=== PATIENT | male | born 1965 | race Two or more races ===

== ENCOUNTER → 2023-01-22 | Outpatient (CLI) | payer MEDICAID ==
[2023-01-22 09:30] LABS: Basophils # (auto) 0 10 ^3/uL (0-0.2); Basophils % (auto) 0.7 % (0.0-2.0); Eosinophils # (auto) 0.1 10 ^3/uL (0-0.8); Eosinophils % (auto) 1.7 % (0.0-7.0); Hemoglobin 14.2 g/dL (13.5-17.5); Lymphocytes # (auto) 2.5 10 ^3/uL (0.4-5.4); Lymphocytes % (auto) 41.8 % (10.0-50.0); Mean Corpuscular Hemoglobin 28.9 pg (28.0-32.0); Mean Corpuscular Volume 87.5 fL (80.0-100.0); Monocytes # (auto) 0.4 10 ^3/uL (0-1.3); Monocytes % (auto) 6.7 % (0.0-12.0); Neutrophils # (auto) 2.9 10 ^3/uL (1.6-8.6); Neutrophils % (auto) 49.1 % (37.0-80.0); Red Blood Cells 4.92 10^6/uL (4.5-5.90); Red Cell Distribution Width 15.9 % (11.8-14.3)
[2023-01-22 09:34] LABS: Urine Bacteria NONE SEEN /hpf (None Seen); Urine Blood Negative /uL (Negative); Urine Specific Gravity 1.025 (1.001-1.035); Urine WBC <1 /hpf (0 - 3)
[2023-01-22 10:07] LABS: Calcium 9.2 mg/dL (8.5-10.1); Potassium 4.3 mmol/L (3.5-5.1)
[2023-01-22 10:13] LABS: BUN/Creatinine Ratio 28.9 (10.0-20.0); Bilirubin, Total 0.6 mg/dL (0.2-1.0); Total Protein 7.2 g/dL (6.4-8.2)
== END | disposition home or self-care (01) ==
LOC: LAB 09:09
PROVIDERS: ATTEND Student in an Organized Health Care Education/Training Program
DX: I10 Essential (primary) hypertension (principal); R73.9 Hyperglycemia, unspecified; E55.9 Vitamin D deficiency, unspecified
CPT/HCPCS: 36415; 80053; 80061; 81001; 82306; 83036; 84443; 85025

== ENCOUNTER → 2023-08-25 | Outpatient (CLI) | payer MEDICAID ==
[2023-08-25 07:50] LABS: Alanine Aminotransferase 193 U/L (7-40); Albumin 4.8 g/dL (3.2-4.8); Alkaline Phosphatase 119 U/L (46-116); Anion Gap 7 (5-15); Aspartate Aminotransferase 81 U/L (13-40); BUN/Creatinine Ratio 16.8 (10.0-20.0); Blood Urea Nitrogen 16 mg/dL (9-23); Calcium 9.7 mg/dL (8.5-10.1); Carbon Dioxide 26 mmol/L (20-30); Chloride 108 mmol/L (98-107); Cholesterol 210 mg/dL (< 200); Glucose 96 mg/dL (74-106); HDL Cholesterol 61 mg/dL (40-59); LDL Cholesterol 145 mg/dL (< 100); Potassium 4.1 mmol/L (3.5-5.1); Sodium 141 mmol/L (136-145); Triglycerides 70 mg/dL (< 150)
[2023-08-25 07:51] LABS: Bilirubin, Total 0.6 mg/dL (0.2-1.0); Total Protein 7.9 g/dL (5.7-8.2)
== END | disposition home or self-care (01) ==
LOC: LAB 06:37
PROVIDERS: ATTEND Student in an Organized Health Care Education/Training Program
DX: E78.5 Hyperlipidemia, unspecified (principal); R74.8 Abnormal levels of other serum enzymes
CPT/HCPCS: 36415; 80053; 80061

== ENCOUNTER → 2023-11-04 | Outpatient (CLI) | payer MEDICAID ==
[2023-11-04 10:21] LABS: Basophils # (auto) 0 10 ^3/uL (0-0.2); Basophils % (auto) 0.7 % (0.0-2.0); Eosinophils # (auto) 0.2 10 ^3/uL (0-0.8); Eosinophils % (auto) 3.1 % (0.0-7.0); Hematocrit 46.4 % (41.0-53.0); Hemoglobin 15.1 g/dL (13.5-17.5); Lymphocytes # (auto) 2.4 10 ^3/uL (0.4-5.4); Mean Corpuscular Hgb Conc. 32.5 g/dL (32.0-36.0); Mean Corpuscular Volume 89.3 fL (80.0-100.0); Monocytes # (auto) 0.3 10 ^3/uL (0-1.3); Monocytes % (auto) 6.4 % (0.0-12.0); Neutrophils # (auto) 1.9 10 ^3/uL (1.6-8.6); Neutrophils % (auto) 39.8 % (37.0-80.0); Red Blood Cells 5.19 10^6/uL (4.5-5.90); Red Cell Distribution Width 14.3 % (11.8-14.3); White Blood Cell 4.9 10^3/uL (4.4-10.8)
[2023-11-04 11:14] LABS: Alanine Aminotransferase 90 U/L (7-40); Albumin 4.4 g/dL (3.2-4.8); Alkaline Phosphatase 133 U/L (46-116); Anion Gap 4 (5-15); Aspartate Aminotransferase 49 U/L (13-40); BUN/Creatinine Ratio 10.2 (10.0-20.0); Bilirubin, Total 0.5 mg/dL (0.2-1.0); Blood Urea Nitrogen 9 mg/dL (9-23); Calcium 9.3 mg/dL (8.5-10.1); Carbon Dioxide 26 mmol/L (20-30); Chloride 110 mmol/L (98-107); Cholesterol 186 mg/dL (< 200); Glucose 99 mg/dL (74-106); HDL Cholesterol 61 mg/dL (40-59); LDL Cholesterol 119 mg/dL (< 100); Potassium 4.6 mmol/L (3.5-5.1); Sodium 140 mmol/L (136-145); Total Protein 7.2 g/dL (5.7-8.2); Triglycerides 50 mg/dL (< 150)
[2023-11-04 14:45] LABS: Urine Bacteria NONE SEEN /hpf (None Seen); Urine Blood Negative /uL (Negative); Urine Clarity Clear (Clear); Urine Color Yellow (Yellow); Urine Protein, UAD Negative (Negative); Urine Specific Gravity 1.023 (1.001-1.035); Urine Urobilinogen Normal (Negative); Urine WBC 1 /hpf (0 - 3); Urine pH 5.5 (5.0-8.0)
== END | disposition home or self-care (01) ==
LOC: LAB 10:00
PROVIDERS: ATTEND Student in an Organized Health Care Education/Training Program
DX: E55.9 Vitamin D deficiency, unspecified (principal); E78.5 Hyperlipidemia, unspecified; R73.9 Hyperglycemia, unspecified
CPT/HCPCS: 36415; 80053; 80061; 81001; 82306; 83036; 84443; 85025

== ENCOUNTER → 2024-03-30 | Outpatient (CLI) | payer MEDICAID ==
[2024-03-30 08:47] LABS: Basophils # (auto) 0.1 10 ^3/uL (0-0.2); Basophils % (auto) 1.1 % (0.0-2.0); Eosinophils # (auto) 0.3 10 ^3/uL (0-0.8); Eosinophils % (auto) 4.8 % (0.0-7.0); Hematocrit 45.2 % (41.0-53.0); Lymphocytes % (auto) 50.9 % (10.0-50.0); Mean Corpuscular Hemoglobin 29.2 pg (28.0-32.0); Mean Corpuscular Hgb Conc. 33.1 g/dL (32.0-36.0); Mean Corpuscular Volume 88.3 fL (80.0-100.0); Monocytes # (auto) 0.4 10 ^3/uL (0-1.3); Neutrophils # (auto) 2.2 10 ^3/uL (1.6-8.6); Neutrophils % (auto) 36.2 % (37.0-80.0); Nucleated Red Blood Cells % 0.1 %; Red Blood Cells 5.12 10^6/uL (4.5-5.90); Red Cell Distribution Width 14.9 % (11.8-14.3)
[2024-03-30 08:56] LABS: Urine Bacteria FEW /hpf (None Seen); Urine Blood Negative /uL (Negative); Urine Clarity Clear (Clear); Urine Color Yellow (Yellow); Urine Mucus FEW (None Seen); Urine Protein, UAD Negative (Negative); Urine Specific Gravity 1.027 (1.001-1.035); Urine Urobilinogen Normal (Negative); Urine WBC 2 /hpf (0 - 3)
[2024-03-30 09:38] LABS: Alanine Aminotransferase 129 U/L (7-40); Albumin 4.5 g/dL (3.2-4.8); Alkaline Phosphatase 131 U/L (46-116); Anion Gap 6 (5-15); Aspartate Aminotransferase 62 U/L (13-40); BUN/Creatinine Ratio 21.8 (10.0-20.0); Bilirubin, Total 0.7 mg/dL (0.2-1.0); Blood Urea Nitrogen 19 mg/dL (9-23); Calcium 9.5 mg/dL (8.5-10.1); Carbon Dioxide 25 mmol/L (20-30); Chloride 110 mmol/L (98-107); Glucose 97 mg/dL (74-106); Potassium 4.3 mmol/L (3.5-5.1); Sodium 141 mmol/L (136-145)
[2024-03-30 09:39] LABS: Total Protein 7.1 g/dL (5.7-8.2)
== END | disposition home or self-care (01) ==
LOC: LAB 08:32
PROVIDERS: ATTEND Student in an Organized Health Care Education/Training Program
DX: I10 Essential (primary) hypertension (principal); E78.5 Hyperlipidemia, unspecified; R73.9 Hyperglycemia, unspecified
CPT/HCPCS: 36415; 80053; 81001; 83036; 84443; 85025

== ENCOUNTER → 2024-06-13 | Outpatient (CLI) | payer MEDICAID ==
[2024-06-13 09:20] LABS: Urine Bacteria None Seen /hpf (None Seen)
[2024-06-13 09:25] LABS: Basophils # (auto) 0.1 10 ^3/uL (0-0.2); Eosinophils # (auto) 0.3 10 ^3/uL (0-0.8); Eosinophils % (auto) 4.8 % (0.0-7.0); Hemoglobin 15.2 g/dL (13.5-17.5); Lymphocytes # (auto) 2.8 10 ^3/uL (0.4-5.4); Lymphocytes % (auto) 45.9 % (10.0-50.0); Mean Corpuscular Hemoglobin 30.8 pg (28.0-32.0); Mean Corpuscular Hgb Conc. 34.6 g/dL (32.0-36.0); Monocytes # (auto) 0.4 10 ^3/uL (0-1.3); Monocytes % (auto) 5.8 % (0.0-12.0); Neutrophils # (auto) 2.6 10 ^3/uL (1.6-8.6); Neutrophils % (auto) 42.5 % (37.0-80.0); Nucleated Red Blood Cells % 0.1 %; Platelet Count (auto) 159 10^3/uL (140-450); Red Blood Cells 4.94 10^6/uL (4.5-5.90); Red Cell Distribution Width 14.7 % (11.8-14.3); White Blood Cell 6.1 10^3/uL (4.4-10.8)
[2024-06-13 09:34] LABS: Urine Blood Negative /uL (Negative); Urine Clarity Clear (Clear); Urine Color Light-Yellow (Yellow); Urine Mucus FEW (None Seen); Urine Protein, UAD Negative (Negative); Urine Specific Gravity 1.019 (1.001-1.035); Urine Urobilinogen Normal (Negative); Urine WBC 1 /hpf (0 - 3); Urine pH 6.5 (5.0-9.0)
[2024-06-13 10:15] LABS: Alanine Aminotransferase 147 U/L (7-40); Albumin 4.7 g/dL (3.2-4.8); Alkaline Phosphatase 120 U/L (46-116); Anion Gap 7 (5-15); Aspartate Aminotransferase 69 U/L (13-40); BUN/Creatinine Ratio 19.5 (10.0-20.0); Bilirubin, Total 0.7 mg/dL (0.2-1.0); Blood Urea Nitrogen 17 mg/dL (9-23); Calcium 9.6 mg/dL (8.7-10.4); Carbon Dioxide 25 mmol/L (20-30); Chloride 108 mmol/L (98-107); Glucose 97 mg/dL (74-106); Potassium 4.1 mmol/L (3.5-5.1); Sodium 140 mmol/L (136-145); Total Protein 7.4 g/dL (5.7-8.2)
== END | disposition home or self-care (01) ==
LOC: LAB 09:03
PROVIDERS: ATTEND Student in an Organized Health Care Education/Training Program
DX: Z12.11 Encounter for screening for malignant neoplasm of colon (principal); I10 Essential (primary) hypertension; R73.9 Hyperglycemia, unspecified
CPT/HCPCS: 36415; 80053; 81001; 82274; 83036; 85025

== ENCOUNTER → 2024-08-22 | Outpatient (CLI) | payer MEDICAID ==
[2024-08-22 16:22] LABS: Basophils # (auto) 0.1 10 ^3/uL (0-0.2); Eosinophils # (auto) 0.2 10 ^3/uL (0-0.8); Eosinophils % (auto) 3.6 % (0.0-7.0); Hematocrit 43.8 % (41.0-53.0); Hemoglobin 14.9 g/dL (13.5-17.5); Lymphocytes # (auto) 2.6 10 ^3/uL (0.4-5.4); Lymphocytes % (auto) 44.3 % (10.0-50.0); Mean Corpuscular Hemoglobin 30.3 pg (28.0-32.0); Mean Corpuscular Hgb Conc. 34.1 g/dL (32.0-36.0); Monocytes # (auto) 0.4 10 ^3/uL (0-1.3); Monocytes % (auto) 6.4 % (0.0-12.0); Neutrophils # (auto) 2.6 10 ^3/uL (1.6-8.6); Neutrophils % (auto) 44.7 % (37.0-80.0); Platelet Count (auto) 174 10^3/uL (140-450); Red Blood Cells 4.93 10^6/uL (4.5-5.90); Red Cell Distribution Width 13.9 % (11.8-14.3); White Blood Cell 5.8 10^3/uL (4.4-10.8)
[2024-08-22 16:24] LABS: Urine Amorphous Crystal FEW /hpf (None Seen); Urine Bacteria FEW /hpf (None Seen); Urine Blood Negative /uL (Negative); Urine Clarity Clear (Clear); Urine Color Yellow (Yellow); Urine Mucus FEW (None Seen); Urine Protein, UAD TRACE (Negative); Urine Specific Gravity 1.028 (1.001-1.035); Urine Urobilinogen Normal (Negative); Urine WBC 2 /hpf (0 - 3)
[2024-08-22 16:42] LABS: Alanine Aminotransferase 103 U/L (7-40); Albumin 4.5 g/dL (3.2-4.8); Alkaline Phosphatase 109 U/L (46-116); Anion Gap 8 (5-15); Aspartate Aminotransferase 57 U/L (13-40); BUN/Creatinine Ratio 21.5 (10.0-20.0); Bilirubin, Total 0.6 mg/dL (0.2-1.0); Blood Urea Nitrogen 23 mg/dL (9-23); Calcium 9.7 mg/dL (8.7-10.4); Carbon Dioxide 26 mmol/L (20-31); Chloride 110 mmol/L (98-107); Cholesterol 174 mg/dL (< 200); Glucose 98 mg/dL (74-106); HDL Cholesterol 66 mg/dL (40-59); LDL Cholesterol 99 mg/dL (< 100); Sodium 144 mmol/L (136-145); Total Protein 7.6 g/dL (5.7-8.2); Triglycerides 77 mg/dL (< 150)
== END | disposition home or self-care (01) ==
LOC: LAB 15:17
PROVIDERS: ATTEND Student in an Organized Health Care Education/Training Program
DX: I10 Essential (primary) hypertension (principal); K76.0 Fatty (change of) liver, not elsewhere classified; R74.8 Abnormal levels of other serum enzymes
CPT/HCPCS: 36415; 80053; 80061; 81001; 82043; 82274; 82306; 83036; 84443; 85025

== ENCOUNTER → 2024-12-20 | Outpatient (CLI) | payer MEDICAID ==
[2024-12-20 09:46] LABS: Urine Bacteria None Seen /hpf (None Seen)
[2024-12-20 10:00] LABS: Basophils # (auto) 0 10 ^3/uL (0-0.2); Basophils % (auto) 0.9 % (0.0-2.0); Eosinophils # (auto) 0.2 10 ^3/uL (0-0.8); Eosinophils % (auto) 3.2 % (0.0-7.0); Hematocrit 46.5 % (41.0-53.0); Hemoglobin 15.5 g/dL (13.5-17.5); Lymphocytes # (auto) 2.8 10 ^3/uL (0.4-5.4); Lymphocytes % (auto) 52.1 % (10.0-50.0); Mean Corpuscular Hemoglobin 29.5 pg (28.0-32.0); Mean Corpuscular Hgb Conc. 33.3 g/dL (32.0-36.0); Mean Corpuscular Volume 88.6 fL (80.0-100.0); Monocytes # (auto) 0.3 10 ^3/uL (0-1.3); Neutrophils % (auto) 37.8 % (37.0-80.0); Platelet Count (auto) 173 10^3/uL (140-450); Red Blood Cells 5.25 10^6/uL (4.5-5.90); Red Cell Distribution Width 14.7 % (11.8-14.3); White Blood Cell 5.4 10^3/uL (4.4-10.8)
[2024-12-20 10:01] LABS: Urine Blood Negative /uL (Negative); Urine Clarity Clear (Clear); Urine Color Yellow (Yellow); Urine Mucus FEW (None Seen); Urine Protein, UAD Negative (Negative); Urine Specific Gravity 1.026 (1.001-1.035); Urine Squamous Epithelial Cell FEW /hpf (<5); Urine Urobilinogen Normal (Negative); Urine WBC 1 /HPF (0-3)
[2024-12-20 10:31] LABS: Alkaline Phosphatase 111 U/L (46-116); Anion Gap 9 (5-15); BUN/Creatinine Ratio 23.1 (10.0-20.0); Calcium 10.1 mg/dL (8.7-10.4); Carbon Dioxide 28 mmol/L (20-31); Chloride 106 mmol/L (98-107); Glucose 103 mg/dL (74-106); Potassium 4.4 mmol/L (3.5-5.1); Sodium 143 mmol/L (136-145); Triglycerides 66 mg/dL (< 150)
[2024-12-20 10:32] LABS: Alanine Aminotransferase 96 U/L (7-40); Blood Urea Nitrogen 24 mg/dL (9-23)
[2024-12-20 10:33] LABS: Bilirubin, Total 0.7 mg/dL (0.2-1.0); HDL Cholesterol 59 mg/dL (40-59)
[2024-12-20 10:34] LABS: Albumin 4.9 g/dL (3.2-4.8); Aspartate Aminotransferase 49 U/L (13-40); Cholesterol 216 mg/dL (< 200); LDL Cholesterol 149 mg/dL (< 100)
== END | disposition home or self-care (01) ==
LOC: LAB 09:31
PROVIDERS: ATTEND Student in an Organized Health Care Education/Training Program
DX: Z12.11 Encounter for screening for malignant neoplasm of colon (principal); I10 Essential (primary) hypertension; R73.9 Hyperglycemia, unspecified
CPT/HCPCS: 36415; 80053; 80061; 81001; 83036; 85025

== ENCOUNTER → 2024-12-21 | Outpatient (CLI) | payer MEDICAID | END | disposition home or self-care (01) | LOC: LAB 08:56 | PROVIDERS: ATTEND Student in an Organized Health Care Education/Training Program | DX: Z12.11 Encounter for screening for malignant neoplasm of colon (principal); I10 Essential (primary) hypertension; R73.9 Hyperglycemia, unspecified | CPT/HCPCS: 82274 ==

== ENCOUNTER 2025-05-01 08:15 | Outpatient (CLI) | payer MEDICAID ==
[2025-05-01 08:53] LABS: Albumin 4.6 g/dL (3.2-4.8); Alkaline Phosphatase 108 U/L (46-116); Anion Gap 9 (5-15); BUN/Creatinine Ratio 20.0 (10.0-20.0); Blood Urea Nitrogen 18 mg/dL (9-23); Calcium 8.9 mg/dL (8.7-10.4); Carbon Dioxide 25 mmol/L (20-31); Glucose 102 mg/dL (74-106); Potassium 4.6 mmol/L (3.5-5.1); Sodium 143 mmol/L (136-145); Total Protein 7.0 g/dL (5.7-8.2); Triglycerides 59 mg/dL (< 150)
[2025-05-01 08:54] LABS: Alanine Aminotransferase 71 U/L (7-40); Bilirubin, Total 0.5 mg/dL (0.2-1.0); Chloride 109 mmol/L (98-107); Cholesterol 114 mg/dL (< 200); HDL Cholesterol 51 mg/dL (40-59)
== END 2025-05-01 17:00 | disposition home or self-care (01) ==
LOC: LAB 08:15
PROVIDERS: ATTEND Student in an Organized Health Care Education/Training Program
DX: I10 Essential (primary) hypertension (principal); E78.5 Hyperlipidemia, unspecified; R73.9 Hyperglycemia, unspecified
CPT/HCPCS: 36415; 80053; 80061; 83036

== ENCOUNTER → 2025-07-28 | Outpatient (CLI) | payer MEDICAID ==
[2025-07-28 11:15] LABS: Hematocrit 47.3 % (41.0-53.0); Hemoglobin 15.8 g/dL (13.5-17.5); Mean Corpuscular Hemoglobin 29.4 pg (28.0-32.0); Mean Corpuscular Volume 88.1 fL (80.0-100.0); Nucleated Red Blood Cells % 0.0 %
[2025-07-28 11:21] LABS: Urine Protein, UAD Negative (Negative)
[2025-07-28 11:27] LABS: Albumin 4.6 g/dL (3.2-4.8); Anion Gap 9 (5-15); BUN/Creatinine Ratio 18.1 (10.0-20.0); Blood Urea Nitrogen 17 mg/dL (9-23); Calcium 8.9 mg/dL (8.7-10.4); Carbon Dioxide 26 mmol/L (20-31); Glucose 96 mg/dL (74-106); Potassium 4.3 mmol/L (3.5-5.1); Sodium 143 mmol/L (136-145); Total Protein 7.6 g/dL (5.7-8.2); Triglycerides 67 mg/dL (< 150)
[2025-07-28 11:28] LABS: Alanine Aminotransferase 82 U/L (7-40); Alkaline Phosphatase 126 U/L (46-116); Bilirubin, Total 0.6 mg/dL (0.2-1.0); Chloride 108 mmol/L (98-107); Cholesterol 146 mg/dL (< 200); HDL Cholesterol 54 mg/dL (40-59)
== END | disposition home or self-care (01) ==
LOC: LAB 09:59
PROVIDERS: ATTEND Student in an Organized Health Care Education/Training Program
DX: I10 Essential (primary) hypertension (principal); E78.5 Hyperlipidemia, unspecified; E55.9 Vitamin D deficiency, unspecified; R73.03 Prediabetes; K76.0 Fatty (change of) liver, not elsewhere classified
CPT/HCPCS: 36415; 80053; 80061; 81001; 82306; 84443; 85025